=== PATIENT | male | born 1995 | race African-American/Black ===

== ENCOUNTER 2025-01-04 12:15 | Emergency (ER) | payer SELFPAY ==
[~2025-01-04] VITALS: Ht 172.7 cm; Wt 69.0 kg
[2025-01-04 12:19] VITALS: O2SAT 100
[2025-01-04 13:00] LABS: BASOPHILS % 0.6 % (0.0-2.0); EOSINOPHILS % 1.1 % (0.0-5.0); HEMATOCRIT. 43.2 % (42.0-52.0); HEMOGLOBIN. 14.2 g/dL (14.0-18.0); LYMPHOCYTES % 24.9 % (20.0-50.0); MEAN CORPUSCULAR HEMOGLOBIN 28.2 pg (28.0-32.0); MEAN CORPUSCULAR HGB CONC 32.9 g/dL (31.0-37.0); MEAN CORPUSCULAR VOLUME 85.6 fL (80.0-94.0); MEAN PLATELET VOLUME 7.9 fl (7.4-10.4); MONOCYTES % 10.1 % (2.0-8.0); NEUTROPHILS % 63.3 % (40.0-76.0); PLATELET 307 x1000/uL (130-400); RED BLOOD CELL COUNT 5.05 mill/uL (4.7-6.1); RED CELL DISTRIBUTION WIDTH 14.7 % (11.6-14.6); WHITE BLOOD COUNT 10.4 x1000/uL (4.5-11.0)
[2025-01-04 13:07] LABS: CHLORIDE 104 mEq/L (98-107); POTASSIUM 5.7 mEq/L (3.5-5.1); SODIUM 138 mEq/L (136-145)
[2025-01-04 13:08] LABS: CARBON DIOXIDE 26 mEq/L (21-32)
[2025-01-04 13:09] LABS: CALCIUM 9.5 mg/dL (8.7-10.4)
[2025-01-04 13:13] LABS: CREATININE 1.1 mg/dL (0.6-1.3); GLUCOSE 99 mg/dL (70-105); UREA NITROGEN BLOOD 15 mg/dL (9-23)
[2025-01-04 13:16] LABS: ETHANOL BLOOD < 10 mg/dL (<10); TROPONIN I HIGH SENSITIVITY < 4 ng/L (3.0-53)
[2025-01-04 13:55] VITALS: BP 129/90; PULSE 87; RESP 18; TEMP 36.8; O2SAT 100
[2025-01-04] MEDS ORDERED: ACETAMINOPHEN 325MG TABLET PO PRN (14:45)
[2025-01-04] MEDS ORDERED: DEXT 5%/0.9% NACL 1,000 ML IV SCH (14:45)
[2025-01-04] MEDS ORDERED: HYDRALAZINE 20MG/ML VIAL IV PRN (14:45)
[2025-01-04] MEDS ORDERED: GUAIFENESIN 200MG/10ML SUGAR FREE UDC PO PRN (14:45)
[2025-01-04] MEDS ORDERED: DOCUSATE SODIUM 100MG CAPSULE PO PRN (14:45)
[2025-01-04] MEDS ORDERED: MAGNESIUM/ALUMINUM HYDROXIDE/SIMETHICONE 30ML UDC PO PRN (14:45)
[2025-01-04] MEDS ORDERED: IPRATROPIUM/ALBUTEROL 0.5-3(2.5)MG/3ML NEB HHN PRN (14:45)
[2025-01-04] MEDS ORDERED: MELATONIN 3MG TABLET PO PRN (14:45)
[2025-01-04] MEDS ORDERED: ONDANSETRON HCL 4MG/2ML INJ IV PRN (14:45)
[2025-01-04] MEDS ORDERED: FAMOTIDINE 20MG TABLET PO SCH (21:00)
[2025-01-04] MEDS ORDERED: ENOXAPARIN 40MG/0.4ML SYR SUBCUT SCH (21:00)
== END 2025-01-04 14:45 | disposition left against medical advice (07) ==
LOC: ER 12:31 → EDBEDREQTM 13:31 → EDBEDREQ 13:31 → EDBEDREQSVC 13:31 → CANBEDREQ 14:36 → ER 14:45
DX: G93.40 Encephalopathy, unspecified (principal)
CPT/HCPCS: 36415; 71045; 80048; 80320; 84484; 85025; 99284; G0480